=== PATIENT | female | born 1950 | race Caucasian/White ===

== ENCOUNTER → 2024-03-17 13:53 | Outpatient (REF) | payer OTHER, SELFPAY | LOC: HWRCS 13:53 | PROVIDERS: ATTENDING PHYSICIAN Internal Medicine; FAMILY PHYSICIAN Student in an Organized Health Care Education/Training Program | DX: R07.89 Other chest pain (principal) | CPT/HCPCS: 93306 ==

== ENCOUNTER → 2025-03-13 11:43 | Outpatient (REF) | payer OTHER, SELFPAY | LOC: HWRCS 11:43 | PROVIDERS: ATTENDING PHYSICIAN Internal Medicine; FAMILY PHYSICIAN Student in an Organized Health Care Education/Training Program | DX: R07.9 Chest pain, unspecified (principal); I49.3 Ventricular premature depolarization; I34.1 Nonrheumatic mitral (valve) prolapse | CPT/HCPCS: 78452; 93017; A9500 ==

== ENCOUNTER → 2025-03-15 08:22 | Outpatient (REF) | payer OTHER, SELFPAY | LOC: HWRCS 08:22 | PROVIDERS: ATTENDING PHYSICIAN Internal Medicine; FAMILY PHYSICIAN Student in an Organized Health Care Education/Training Program | DX: R07.9 Chest pain, unspecified (principal); I49.3 Ventricular premature depolarization; I34.1 Nonrheumatic mitral (valve) prolapse | CPT/HCPCS: 93306 ==